=== PATIENT | female | born 1990 ===

== ENCOUNTER 2021-02-15 00:47 | Observation (INO) | payer OTHER ==
--- NOTE | 2021-02-15 03:03 | Ultrasound Report ---
ULTRASOUND PELVIS INDICATION / CLINICAL INFORMATION: pain and bleeding. TECHNIQUE: Transvaginal. Duplex Color Doppler used: Yes. COMPARISON: None available FINDINGS: UTERUS: Uterus measures 9.7 cm in length. Endometrial stripe measures approximately 5 mm. There is a small nabothian cyst RIGHT ADNEXA: No significant ovarian cyst or mass. Normal color Doppler blood flow. LEFT ADNEXA: Left ovary is not visualized. No adnexal mass is seen URINARY BLADDER: No significant abnormality. FREE FLUID: There is a minimal amount of free fluid in the cul-de-sac. ADDITIONAL FINDINGS: None. IMPRESSION: 1. No significant abnormality. 2. The left ovary is not visualized. Signer Name: Rick Simmons MD Signed: 02/15/2021 2:59 AM Workstation Name: [id number]
[2021-02-15 04:08] LABS: Basophils % (Auto) 0.2 % (0.0-1.8); Eosinophils % (Auto) 0.2 % (0.0-4.3); Hematocrit 39.8 % (30.3-42.9); Hemoglobin 13.6 gm/dl (10.1-14.3); Lymphocytes # (Auto) 1.6 K/mm3 (1.2-5.4); Lymphocytes % (Auto) 9.6 % (13.4-35.0); Mean Corpuscular HGB Conc 34 % (30-34); Mean Corpuscular Volume 94 fl (79-97); Monocytes # (Auto) 0.6 K/mm3 (0.0-0.8); Monocytes % (Auto) 3.6 % (0.0-7.3); Platelet Count 249 K/mm3 (140-440); Red Blood Count 4.22 M/mm3 (3.65-5.03); Red Cell Distribution Width 13.1 % (13.2-15.2)
[2021-02-15 04:32] LABS: Alanine Aminotransferase 10 units/L (7-56); Albumin 4.3 g/dL (3.9-5); Blood Urea Nitrogen 8 mg/dL (7-17); Hemolysis Index 3
[2021-02-15 04:37] LABS: BUN/Creatinine Ratio 11
[2021-02-15] MEDS ORDERED: SODIUM CHLORIDE 0.9% 1000 ML 1,000 ML IV ONE ×2 (11:14→14:30)
--- NOTE | 2021-02-15 11:34 | Emergency Department Report ---
ED Abdominal Pain HPI - General Chief Complaint: Abdominal Pain Time Seen by Provider: 02/15/21 09:24 Source: patient Mode of arrival: Ambulatory Limitations: No Limitations - History of Present Illness Initial Comments: 31-year-old female, , presents to ED with abdominal pain. Patient states last menstrual period was December 27. She states she has been having lower abdomina l pain for the last 2 weeks. Patient reports positive home test last week. Patient states last night she began having severe lower abdominal pain. Patient began having some vaginal bleeding when she arrived in the ED. MD Complaint: abdominal pain -: Last night Location: suprapubic Radiation: back Migration to: no migration Severity: moderate Severity scale (0 -10): 9 Quality: cramping Consistency: constant Improves With: nothing Worsens With: nothing - Related Data Allergies Allergy/AdvReac Type Severity Reaction Status Date / Time No Known Allergies Allergy Unverified 02/15/21 02:14 ED Review of Systems ROS: Stated complaint: Other details as noted in HPI Comment: All other systems reviewed and negative Constitutional: denies: fever Gastrointestinal: abdominal pain Genitourinary: other (Reports vaginal bleeding) ED Physical Exam - General Limitations: No Limitations General appearance: alert, in no apparent distress - Head Head exam: Present: atraumatic, normocephalic - Eye Eye exam: Present: normal appearance, EOMI - ENT ENT exam: Present: mucous membranes moist - Neck Neck exam: Present: normal inspection - Respiratory Respiratory exam: Present: normal lung sounds bilaterally. Absent: respiratory distress - Cardiovascular Cardiovascular Exam: Present: regular rate, normal rhythm - GI/Abdominal GI/Abdominal exam: Present: soft, tenderness (Suprapubic). Absent: distended - Extremities Exam Extremities exam: Present: normal inspection - Neurological Exam Neurological exam: Present: alert, oriented X3 - Psychiatric Psychiatric exam: Present: normal affect, normal mood - Skin Skin exam: Present: warm, dry, intact, normal color ED Course Vital Signs 02/15/21 02/15/21 02/15/21 02:16 09:11 09:12 Temperature 98 F 97.8 F Pulse Rate 97 H 77 86 Respiratory 20 24 18 Rate Blood Pressure 99/67 99/67 Blood Pressure 104/47 [Right] O2 Sat by Pulse 100 99 98 Oximetry 02/15/21 02/15/21 02/15/21 09:36 09:46 10:46 Temperature Pulse Rate 70 Respiratory 16 Rate Blood Pressure 91/62 96/49 Blood Pressure 96/49 [Right] O2 Sat by Pulse 96 98 99 Oximetry 02/15/21 14:30 Temperature Pulse Rate 72 Respiratory 16 Rate Blood Pressure Blood Pressure 90/58 [Right] O2 Sat by Pulse 100 Oximetry - Consultations Consultation #1: 02/15/21 11:[address] Canales, OB on-call. Will come down to examine patient. 02/15/21 14:54 Dr Canales here in ED to evaluate pt. ED Medical Decision Making - Lab Data Result diagrams: 02/15/21 11:48 02/15/21 03:30 - Radiology Data Radiology results: report reviewed, image reviewed - Medical Decision Making 31-year-old female presents to ED with abdominal pain. test is positive. hCG level is 17,000. No IUP seen on ultrasound. Patient is hypotensive, but not tachycardic. Repeat H&H stable. Patient seen and evalua freddie in the ED by Dr. Canales, on-call OB. Will take to OR for diagnostic laparoscopy to rule out ectopic . - Differential Diagnosis ectopic , threatened AB, IUP Critical care attestation.: If time is entered above; I have spent that time in minutes in the direct care of this critically ill patient, excluding procedure time. ED Disposition Clinical Impression: , Abdominal pain, Vaginal bleeding Disposition: OP ADMIT IP TO THIS HOSP Is pt being admited?: Yes Condition: Stable Instructions: Abdominal Pain (ED) Referrals: PNOS,PNOS [Other] - 3-5 Days Time of Disposition: 15:15
[2021-02-15 12:36] LABS: Hematocrit 37.9 % (30.3-42.9); Hemoglobin 12.7 gm/dl (10.1-14.3)
[2021-02-15] MEDS ORDERED: SODIUM CHLORIDE 0.9% 1000 ML 1,000 ML ONE (14:26)
--- NOTE | 2021-02-15 15:47 | History and Physical Report ---
History of Present Illness Date of examination: 02/15/21 Date of admission: 02/15/21 Chief complaint: bleedinga and pelvic pain. History of present illness: Patient is a 28-year-old 5 para 4004. Which did not show any however she does have significant bleeding and pelvic pain. We need to rule out ectopic on observation basis for a D&C and a diagnostic laparoscopy. The patient denies any prior surgery and has no allergies. She has no medical problems. She has been admitted on an observation basis to emergency room. Past History Past Medical History: no pertinent history Past Surgical History: no surgical history Family/Genetic History: none Social history: Medications and Allergies Allergies Allergy/AdvReac Type Severity Reaction Status Date / Time No Known Allergies Allergy Unverified 02/15/21 02:14 Review of Systems ROS unobtainable: due to endotracheal tube All systems: negative - Vital Signs Vital signs: Vital Signs Temp Pulse Resp BP Pulse Ox 98 F 97 H 20 104/47 100 02/15/21 02:16 02/15/21 02:16 02/15/21 02:16 02/15/21 02:16 02/15/21 02:16 Temp Pulse Resp BP Pulse Ox 97.8 F 79 19 91/61 100 02/15/21 09:12 02/15/21 15:18 02/15/21 15:18 02/15/21 15:18 02/15/21 15:18 - Physical Exam Breasts: Cardiovascular: Regular rate, Normal S1, Normal S2 Abdomen: Positive: normal appearance, soft, normal bowel sounds. Negative: distention, tenderness (Left lower quadrant tenderness.) Genitourinary (Female): Positive: normal external genitalia, normal perenium Vulva: both: normal Vagina: Positive: normal moisture. Negative: discharge Cervix: Positive: other (Blood in office.). Negative: lesion, discharge Uterus: Positive: normal size, normal contour, other (Difficult to palpate secondary to tenderness.) Adnexa: right: normal, left: tenderness (Left adnexal tenderness without obvious mass.) Anus/Rectum: Positive: normal perianal skin, heme negative. Negative: rectal mass, hemorrhoids Extremities: Deep Tendon Reflex Grade: Normal +2 Results Result Diagrams: 02/15/21 11:48 02/15/21 03:30 Abnormal lab results 02/15/21 02/15/21 02/15/21 Range/Units 03:30 03:30 09:45 WBC 16.5 H (4.5-11.0) K/mm3 RDW 13.1 L (13.2-15.2) % Lymph % (Auto) 9.6 L (13.4-35.0) % Seg Neutrophils % 86.4 H (40.0-70.0) % Seg Neutrophils # 14.3 H (1.8-7.7) K/mm3 Sodium 136 L (137-145) mmol/L Carbon Dioxide 20 L (22-30) mmol/L Glucose 117 H (65-100) mg/dL HCG, Quant 45218 H (0-4) mIU/mL All other labs normal. Assessment and Plan Heavy vaginal bleeding. Need to rule out ectopic . We will proceed with a D&C and a diagnostic laparoscopy on observation basis.
[2021-02-15] MEDS ORDERED: KETOROLAC 30 MG/1 ML INJ ONE (17:24)
[2021-02-15] MEDS ORDERED: fentaNYL 100 MCG/2 ML INJ ONE (17:24)
[2021-02-15] MEDS ORDERED: LIDOCAINE MPF (2%) 20 MG/1 ML VIAL 5 ML ONE (17:24)
[2021-02-15] MEDS ORDERED: ROCURONIUM 50 MG/5 ML INJ IV ONE (17:24)
[2021-02-15] MEDS ORDERED: MIDAZOLAM 2 MG/2 ML INJ ONE (17:24)
[2021-02-15] MEDS ORDERED: ONDANSETRON 4 MG/2 ML INJ ONE (17:25)
[2021-02-15] MEDS ORDERED: propofoL 200 MG/20 ML VIAL IV ONE (17:25)
[2021-02-15] MEDS ORDERED: dexAMETHasone 20 MG/5 ML VIAL ONE (17:25)
[2021-02-15] MEDS ORDERED: HYDROmorphone 1 MG/1 ML INJ IV PRN (17:27)
[2021-02-15] MEDS ORDERED: ONDANSETRON 4 MG/2 ML INJ IV PRN ×2 (17:27→18:36)
[2021-02-15] MEDS ORDERED: oxyCODONE /ACETAMINOPHEN 5-325MG TAB PO PRN (17:27)
--- NOTE | 2021-02-15 17:27 | Anesthesia Consultation ---
Anesthesia Consult and Med Hx Date of service: 02/15/21 - Airway Anesthetic Teeth Evaluation: Good ROM Head & Neck: Adequate Mental/Hyoid Distance: Adequate Mallampati Class: Class II Intubation Access Assessment: Probably Good - Pre-Operative Health Status ASA Pre-Surgery Classification: ASA1, Emergency Proposed Anesthetic Plan: General - Pulmonary Hx Smoking: No Hx Respiratory Symptoms: No - Cardiovascular System Hx Hypertension: No - Central Nervous System CVA: No - Endocrine Hx Renal Disease: No Hx Liver Disease: No Hx Insulin Dependent Diabetes: No Hx Non-Insulin Dependent Diabetes: No Hx Thyroid Disease: No - Hematic Hx Anemia: No - Additional Comments Anesthesia Medical History Comments: Possible ectopic scheduled for diagnostic laparoscopy. Hypotension, no tachycardia. H/H stable WNL. Plan GETA +stnd ASA monitors. T&S current.
--- NOTE | 2021-02-15 17:27 | Anesthesia Day of Surgery ---
Anesthesia Day of Surgery - Day of Surgery Patient Examined: Yes Patient H&P Reviewed: Yes Patient is NPO: Yes
[2021-02-15 17:36] LABS: Bilirubin,Urine NEG (Negative); Blood,Urine LG (Negative); Color,Urine Straw (Yellow); Protein,Urine <15 mg/dL mg/dL (Negative); Urobilinogen,Urine < 2.0 mg/dL (<2.0)
[2021-02-15] MEDS ORDERED: LIDOCAINE (1%) 10 MG/1 ML VIAL 20 ML MDV ONE (18:07)
[2021-02-15] MEDS ORDERED: LIDOCAINE (1%) 10 MG/1 ML VIAL 20 ML MDV INFILTRATI ONE (18:29)
[2021-02-15] MEDS ORDERED: ACETAMINOPHEN 325 MG TAB PO PRN (18:36)
[2021-02-15] MEDS ORDERED: MORPHINE 4 MG/1 ML INJ IV PRN (18:36)
--- NOTE | 2021-02-15 18:48 | Procedure Note ---
Date of procedure: 02/15/21 Pre-op diagnosis: pelvic pain, vaginal bleeding, r/o ectopic Post-op diagnosis: same Procedure: This is Dr. Morales dictating operative report on patient. Acute pelvic pain vaginal bleeding rule out ectopic Postop diagnosis acute pelvic pain vaginal bleeding no evidence of ectopic . The surgery was a D&C and diagnostic laparoscopy. Anesthesia General with intubation. Fluids IV. Drains none. The bladder was emptied with in and out catheterization. Estimated blood loss less than 20 cc. Complications none. Specimen endometrial curettings. Findings patient was found to have minimal amount of tissue in the endometrial cavity. And she had normal fallopian tubes bilaterally both ovaries appeared to be normal bilaterally with minimal amount of bloody blood-tinged fluid in the cul-de-sac. No evidence of ectopic . Patient was taken operatory placed in supine position and given a general anesthetic with intubation the patient placed in the knee stirrups and prepped and draped in usual manner timeout was done everyone concurred. Exam performedanesthesia placed without have a anteflexed uterus slightly enlarged no masses in either adnexa. We then placed a saline speculum inside vagina cervix was grasped with a single-tooth tenaculum. Sharp curettage to remove any tissue that was in the endometrial cavity appeared to be minimal to moderate no evidence of perforation. We turned our attention then towards the left breast post procedure versus skin just below the like as well as injected with a few cc cc of half percent Marcaine plain we then made a small stab incision and inserted Veress needle into the peritoneal cavity 2 L of carbon dioxide were used to obtain pneumoperitoneum the veress needle was removed. Then the 5 mm bladeless trocar was easily inserted to the peritoneal cavity through the incision and we inserted the scope inside the sheath and the above findings noted. We have found to have a slightly enlarged uterus both tubes and ovaries were normal bilaterally no evidence of ectopic there was some minimal amount of blood-tinged fluid in the cul-de-sac no evidence of adhesions no evidence of endometriosis. Saline no further treatment was indicated all instruments removed from abdominal care except the sheet gas elastic debris sheath was easily removed the skin incision was repaired with a running subcuticular 4-0 Monocryl suture. And drained with Dermabond the instruments in the vagina were also removed the patient tolerated procedure well she was then returned to recovery room in stable condition end of operative note on the patient. Anesthesia: GETA Surgeon: CHIKI MORALES Estimated blood loss: minimal Pathology: list (endometrial curretings) Specimen disposition: to lab Condition: stable Disposition: PACU
[2021-02-15] MEDS ORDERED: LACTATED RINGERS 1,000 ML ONE (19:12)
--- NOTE | 2021-02-15 19:31 | Post Anesthesia Evaluation ---
- Post Anesthesia Evaluation Patient Participated: Yes Airway Patent: Yes Stable Respiratory Function: Yes Nausea/Vomiting: No Temp > 96.8F: Yes Pain Manageable: Yes Adequeate Hydration: Yes Anesthesia Complications: No
[2021-02-16] MEDS: traMADol 50 MG TAB PO PRN ×2 (00:31→09:30)
[2021-02-16 04:05] LABS: Hematocrit 34.2 % (30.3-42.9); Hemoglobin 11.5 gm/dl (10.1-14.3)
--- NOTE | 2021-02-16 10:21 | Discharge Summary ---
Providers - Providers Date of Admission: 02/15/21 15:15 Date of discharge: 02/16/21 Attending physician: CHIKI MORALES MD 02/15/21 11:31 Consult to Physician [CONS] Stat Comment: Consulting Provider: CHIKI MORALES Physician Instructions: Reason For Exam: , abd pain Primary care physician: amol Hospitalization Condition: Stable Disposition: DC-01 TO HOME OR SELFCARE Final Discharge Diagnosis (Prints w/discharge instructions): incomplete . pelvic pain Time spent for discharge: 10 mins - Discharge Diagnoses (1) Abdominal pain Status: Acute Qualifiers: Abdominal location: lower abdomen, unspecified Qualified Code(s): R10.30 - Lower abdominal pain, unspecified (2) Status: Acute Qualifiers: Weeks of gestation: 8 weeks Qualified Code(s): Z3A.08 - 8 weeks gestation of (3) Vaginal bleeding Status: Acute Core Measure Documentation - Palliative Care Palliative Care/ Comfort Measures: Not Applicable - Core Measures Any of the following diagnoses?: none Exam - Physical Exam Narrative exam: see hx of present illness. - Constitutional Vitals: Temp Pulse Resp BP Pulse Ox 97.7 F 59 L 16 90/56 100 02/16/21 07:53 02/16/21 07:53 02/16/21 09:30 02/16/21 07:53 02/16/21 07:53 General appearance: Present: no acute distress, well-nourished - EENT Eyes: Present: PERRL ENT: hearing intact, clear oral mucosa - Neck Neck: Present: supple, normal ROM - Respiratory Respiratory effort: normal Respiratory: bilateral: CTA - Cardiovascular Heart Sounds: Present: S1 & S2. Absent: rub, click - Extremities Extremities: pulses symmetrical, No edema Peripheral Pulses: within normal limits - Abdominal General gastrointestinal: Present: soft, non-tender, non-distended, normal bowel sounds Female genitourinary: Present: normal - Integumentary Integumentary: Present: clear, warm, dry - Musculoskeletal Musculoskeletal: gait normal, strength equal bilaterally - Psychiatric Psychiatric: appropriate mood/affect, intact judgment & insight - Neurologic Neurologic: CNII-XII intact, moves all extremities Plan Weight Bearing Status: Weight Bear as Tolerated Diet: regular
[2021-02-16 11:59] VITALS: BP 87/44
[2021-02-16] MEDS ORDERED: NEOSTIGMINE 10MG/10 ML INJ MDV ONE (19:00)
[2021-02-16] MEDS ORDERED: GLYCOPYRROLATE 0.4 MG/2 ML INJ ONE (19:00)
== END 2021-02-16 12:06 | disposition home or self-care (01) ==
LOC: ED 00:47 → OB 15:15
DX: O46.91 Antepartum hemorrhage, unspecified, first trimester (principal); N93.9 Abnormal uterine and vaginal bleeding, unspecified; Z3A.08 8 weeks gestation of pregnancy
CPT/HCPCS: 36415; 49320; 58120; 76856; 80053; 81001; 84702; 84703; 85014; 85018; 85025; 86850; 86900; 86901; 88305; 96361; 96374; 99284; G0378; J1100; J1885; J2250; J2270; J2704; J3010; J7030; J7120; 76830; J2405; J2710